=== PATIENT | male | born 1965 | race Caucasian/White ===

== ENCOUNTER → 2020-11-18 11:40 | Outpatient (CLI) | payer BC, SELFPAY ==
[2020-11-18 13:22] LABS: Coronavirus 19 IgG Antibody Negative (Negative); Coronavirus 19 IgM Antibody Negative (Negative)
== END ==
PROVIDERS: Visit Provider Internal Medicine Adolescent Medicine
DX: Z20.822 Contact with and (suspected) exposure to COVID-19 (principal)
CPT/HCPCS: 36415; 86328

== ENCOUNTER → 2021-05-19 08:04 | Outpatient (POV) | payer BC, SELFPAY | PROVIDERS: Visit Provider Dermatology | DX: Z00.00 Encounter for general adult medical examination without abnormal findings (principal) ==

== ENCOUNTER → 2022-04-01 07:11 | Outpatient (CLI) | payer BC, SELFPAY ==
--- NOTE | 2022-04-01 07:16 | CT_ITS ---
FINAL REPORT TECHNIQUE: Axial images through the abdomen and pelvis were performed without contrast.This study was performed with techniques to keep radiation doses as low as reasonably achievable, (ALARA). Individualized dose reduction techniques using automated exposure control or adjustment of mA and/or kV according to the patient's size were employed. CLINICAL HISTORY: LT INGUINAL PAIN,LT LOWER QUAD PAIN FINDINGS: ABDOMEN: The lung demonstrate a 5 mm nodule at the right major fissure on image 2 of series 3 likely representing an intra fissural lymph node. The heart size is normal. There is a benign-appearing cyst in the superior right hepatic lobe measuring 2.4 cm in diameter. There are also other, smaller hepatic cysts. Otherwise, liver and gallbladder are unremarkable. The spleen is normal. No adrenal mass is identified. The aorta is normal in caliber. There is a partially calcified precaval lymph node. There is no significant free fluid or adenopathy. There is a nonobstructing stone in the lower pole the right kidney measuring 5 mm seen on image 74 of series 3. There is no hydronephrosis. PELVIS: The appendix is normal. There is a small, fat containing left inguinal hernia. The urinary bladder is unremarkable. There is no significant free fluid or adenopathy. IMPRESSION: Small, fat containing left inguinal hernia. 5 mm nonobstructing right renal stone. Benign-appearing hepatic cysts. Reviewed, Interpreted and Dictated by Vahid Jackson MD Transcribed by Chanel Kirk Authenticated and [facility]
== END ==
PROVIDERS: PCP Internal Medicine Adolescent Medicine; Visit Provider Internal Medicine Adolescent Medicine
DX: R10.32 Left lower quadrant pain (principal)
CPT/HCPCS: 74176

== ENCOUNTER → 2022-04-07 10:06 | Outpatient (CLI) | payer BC, SELFPAY ==
--- NOTE | 2022-04-07 10:16 | ECG_ITS ---
APPROVED REPORT Exam: Resting ECG HR:63 bpm ECG Measurements Heart Rate 63 AXES VA 159 P 62 QRSd 94 QRS 6 QT 388 T 54 QTc 396 Conclusion SINUS RHYTHM NORMAL ECG UNCONFIRMED REPORT Electronically signed by : Ernesto James MD 04/07/2022 18:35:54
[2022-04-07 10:22] LABS: Microscopic, Urine URINE MICROSCOPIC (MICROSCOPIC)
[2022-04-07 10:46] LABS: Appearance,Urine CLEAR (Clear); Bilirubin,Urine Negative (Negative); Blood, Urine Negative (Negative); Color,Urine YELLOW (Yellow); Glucose,Urine (UA) Negative (Negative); Ketones,Urine Negative (Negative); Leukocyte Esterase,Urine Negative (Negative); Nitrate,Urine Negative (Negative); PH,Urine 7.5 (5.0-8.5); Protein,Urine Negative (Negative); Urobilinogen,Urine 0.2 EU/dl (0.2)
[2022-04-07 10:49] LABS: WBC,Urine Occasional #/hpf (0-3)
[2022-04-07 10:50] LABS: Bacteria,Urine Trace /lpf; Basophils % 0.5 % (0.1-2.0); Eosinophils # 0.2 K/mm3 (0.0-0.4); Hematocrit 46.5 % (42.0-52.0); Hemoglobin 15.2 g/dL (14.1-18.0); Lymphocytes # 2.2 K/mm3 (0.7-4.5); Mean Corpuscular HGB Conc 32.6 g/dL (31.8-35.4); Mean Platelet Volume 7.9 fl (7.4-10.4); Monocytes # 0.3 K/mm3 (0.1-1.0); Monocytes % 5.2 % (1.7-9.3); Neutrophils # 3.1 K/mm3 (1.8-7.8); Neutrophils % 53.3 % (37.0-80.0); Platelet Count 250 K/mm3 (142-424); RBC,Urine Occasional #/hpf (0-3); Red Blood Count 5.23 M/mm3 (4.60-6.20); Red Cell Distribution Width 13.1 % (11.5-17.5); Squamous Epithelial Cell,Urine Occasional #/hpf (0-5); White Blood Count 5.8 K/mm3 (4.8-10.8)
[2022-04-07 11:32] LABS: Chloride 107 mmol/L (98-107); Potassium 4.5 mmoL/L (3.5-5.1); Sodium 140 mmol/L (136-145)
[2022-04-07 11:35] LABS: Blood Urea Nitrogen 14 mg/dl (9-20); Estimated Glomerular Filt Rate 88 ml/min (>60); GFR (African American) 106 ML/MIN (>60)
[2022-04-07 11:36] LABS: Anion Gap 12.5 mEq/L (5-15); Calcium 9.2 mg/dl (8.4-10.2); Carbon Dioxide 25 mmol/L (22.0-30.0); Glucose 97 mg/dl (74-100)
== END ==
PROVIDERS: PCP Internal Medicine Adolescent Medicine; Visit Provider Surgery
DX: Z01.818 Encounter for other preprocedural examination (principal); K40.90 Unilateral inguinal hernia, without obstruction or gangrene, not specified as recurrent
CPT/HCPCS: 36415; 80048; 81001; 85025; 93005

== ENCOUNTER 2022-04-29 06:01 | Day surgery (SDC) | payer BC, SELFPAY ==
[2022-04-29] VITALS (10 sets, daily range): BP systolic 105–130; BP diastolic 67–86; PULSE 66–91; RESP 15–19; TEMP 36.5–43; O2SAT 93–98; BMI 31.1
--- NOTE | 2022-04-29 07:08 | EXP.ANES.CKL ---
[facility] Disclaimer: The information contained in this section may have been updated after the patient was seen, as this information can be updated by other users. Medical History BPH (benign prostatic hyperplasia) Surgical History History of colonoscopy Family History Other Family history of cancer Social History Smoking Status: Never smoker alcohol intake: current substance use type: denies use current occupational status: employed Travel in the last 8 weeks: None household members: family housing: house lives independently: No marital status: education level: college service: No caffeine: Yes special ky needs: No agree to transfusion: No do you feel safe at home: Yes victim of physical abuse: No victim of emotional abuse: No victim of sexual abuse: No would you like helpful sources: No [facility] Anesthesia Checklist Patient Identification Patient Identification: Arm Band and Verbal (Name & ) Structural Data Admitted From: Home Planned Operative Procedure/s: Inguinal hernia repair Consent for Planned Operative Procedure(s) Verified: Yes NPO Status Verified Time NPO: 00:00 Additional verifications Anesthesia Reactions: No Hx Blood Transfusions: No Blood Transfusion Reaction: No Airway Assessment C-Spine Mobility Assessed: Yes TMJ Mobility Assessed: Yes Dentition: Good Dentition Neurological Assessment Level of Consciousness: Awake Hx Seizures: No Numbness or tingling in extremities: No Anesthesia Plan Anesthesia Risk discussed: Yes Anesthesia Plan: Verified ASA Class: I Anesthesia Type: General
--- NOTE | 2022-04-29 09:13 | EXP.OP.NOTE ---
Date of procedure: 04/29/22 Pre-op Diagnosis:: Left inguinal hernia Post-op Diagnosis:: Same Procedure performed:: Open left inguinal hernia repair Surgeon:: Amadou Arndt MD PHYSICIAN GENERAL INTERNAL MEDICINE:: Young Jung Anesthesia: GETA Estimated blood loss (mL): 15 Operative findings:: Large complex indirect defect Dense adhesions throughout inguinal canal Operative note:: After informed consent was obtained the patient was taken to the operating room and placed in the supine position. General anesthesia was induced and his abdomen and groin/scrotum were prepped and draped in a sterile fashion. After infiltration of local anesthetic an oblique left groin incision was made. Electrocautery was used to transect through Vanessa's fascia to the level of the external aponeurosis. The external aponeurosis was sharply opened to the level of the external ring. The contents of the canal were carefully elevated. Dense adhesions were noted throughout. A large cord lipoma and the hernia sac were densely adhered to the cord structures. A combination of sharp dissection, blunt dissection, and electrocautery was utilized to free the cord from surrounding tissue. No obvious injury to the vas deferens or vasculature was noted. The hernia sac was elevated and opened along its distal margin to facilitate dissection. Once dissection was completed the defect was reapproximated with running Vicryl suture. An extra-large PerFix plug was placed in the defect and secured with interrupted Ethibond. The PerFix overlay was then secured to the shelving edge inferiorly and fascial margin superiorly with interrupted Ethibond. The external aponeurosis was reapproximated with running Vicryl suture. Vanessa's fascia was reapproximated in the same manner. 3-0 Monocryl STRATAFIX was then used to close the skin. Dressings were applied and the patient was transferred to recovery in stable condition after extubation. Condition: stable Disposition: PACU Specimens:: None Complications:: No immediate
--- NOTE | 2022-04-29 09:21 | P.PNANES_ITS ---
[facility] Anesthesia Record Part I Anesthesia Record I Intake, IV Amount: 1,300 Estimated blood loss (mL): 15 Urine output (mL): 200 Blood Pressure: 125/67 SaO2: 93 Pulse Rate: 90 Respiratory Rate: 19 Temperature: 98.3 F Patient is:: Drowsy and Oral/Nasal airway Stable to PACU at:: 09:20
[2022-04-29 11:38] LABS: Microscopic,Cath URINE MICROSCOPIC (MICROSCOPIC)
[2022-04-29 11:48] LABS: Appearance,Urine/Cath CLEAR (Clear); Bilirubin,Cath Negative (Negative); Blood, Urine/Cath Negative (Negative); Color,Urine/Cath YELLOW (Yellow); Glucose,Urine/Cath (UA) Negative (Negative); Ketones,Urine/Cath Negative (Negative); Leukocyte Esterase,Cath Negative (Negative); Nitrate,Cath Negative (Negative); Protein,Urine/Cath Negative (Negative); Urobilinogen,Cath 0.2 EU/dl (0.2)
[2022-04-29 12:05] LABS: Squamous Epithelial Ur./Cath Occasional #/hpf (0-5); WBC,Urine/Cath Occasional #/hpf (0-3)
--- NOTE | 2022-04-30 16:06 | EXP.ANES.II ---
[facility] Anesthesia Record Part II Anesthesia Record Part II Discharge Time: 09:50 Destination: Surgical Day Care (OP Surgery) PACU nurse assessment reviewed?: Yes Patient Condition:: Good Anesthesia Complications:: None Swallowing reflex intact?: Yes Cyanosis?: No Blood Pressure: 127/82 Pulse Rate: 84 Temperature: 98 F Mental Status: Alert & Oriented Pain level:: 0 Nausea and/or vomitting:: None Intake, IV Amount: 0
[2022-04-30 16:07] VITALS: BP 127/82; PULSE 84; TEMP 36.6
== END 2022-04-29 10:30 | disposition home or self-care (01) ==
PROVIDERS: PCP Internal Medicine Adolescent Medicine; Visit Provider Surgery
PROC: (CPT 49505; principal; 2022-04-29 07:30)
DX: K40.90 Unilateral inguinal hernia, without obstruction or gangrene, not specified as recurrent (principal); K66.0 Peritoneal adhesions (postprocedural) (postinfection); Z79.899 Other long term (current) drug therapy
CPT/HCPCS: 49505; 81001; 96374; J2405

== ENCOUNTER 2024-01-15 01:35 | Emergency (ER) | payer BC, SELFPAY ==
[2024-01-15 01:36] VITALS: BP 178/107; PULSE 80; RESP 18; TEMP 36.6; O2SAT 94; BMI 33.9
[2024-01-15 01:39] VITALS: BP 178/107; PULSE 86; O2SAT 96
--- NOTE | 2024-01-15 01:41 | ED_ITS ---
Discharge Plan Disposition Patient Disposition: Home, Self-Care Prescriptions Prescriptions: No Action alfuzosin 10 mg tablet extended release 24 hr 10 mg PO DAILY Referrals Follow up/Referrals: Ethan Peters MD [Staff Physician] - See instructions Ernesto James MD [Primary Care Provider] - See instructions Activity Restrictions/Add. Instructions Additional Instructions/Restrictions: Please follow-up with your primary care provider and with urology. Please return to the emergency department if you develop any new or worsening symptoms or become concerned for your health. Please take Tylenol and ibuprofen as needed for pain. Clinical Impressions Clinical Impression: Obstruction of ureteropelvic junction (UPJ) due to stone Instructions Patient Instructions: DI for Acute Abdominal Pain Print Language Print Language: [place]i Discharge ED Provider: Mejia Yu General Adult HPI General Chief complaint: Abdominal Pain Stated complaint: abd pain Time Seen by Provider: 01/15/24 01:35 History of Present Illness HPI narrative: 58-year-old male with history of prior left hernia repair and BPH presents for right lower quadrant pain. He reports it is relatively severe, sharp, somewhat intermittent. Has been going on since this evening. No prior surgical history, no recent fever or illness. Patient has been nauseous but has not vomited. Had a normal bowel movement earlier today. Denies inguinal or testicular pain or swelling. Related Data Home Medications ?Medication ?Instructions ?Recorded ?Confirmed alfuzosin 10 mg tablet,extended 10 mg PO DAILY BPH 04/27/22 05/12/22 release 24 hr Allergies Allergy/AdvReac Type Severity Reaction Status Date / Time No Known Allergies Allergy Verified 05/12/22 09:07 [facility] Disclaimer: The information contained in this section may have been updated after the patient was seen, as this information can be updated by other users. Medical History (Updated 01/15/24 @ 03:00 by Mejia Yu MD) BPH (benign prostatic hyperplasia) Left inguinal hernia Surgical History (Updated 05/12/22 @ 09:14 by EDNA Ferro) History of inguinal hernia repair History of colonoscopy Family History Other Family history of cancer Social History Smoking Status: Never smoker alcohol intake: current substance use type: denies use current occupational status: employed household members: family housing: house lives independently: No marital status: education level: college service: No caffeine: Yes special [place] needs: No agree to transfusion: No do you feel safe at home: Yes victim of physical abuse: No victim of emotional abuse: No victim of sexual abuse: No would you like helpful sources: No ROS Obtained: Yes All systems reviewed & no additional complaints except as documented Physical Exam General General appearance: alert and in no apparent distress Head Head exam: atraumatic and normocephalic Eye Eye exam: Present normal appearance, PERRL and EOMI ENT ENT exam: Present normal oropharynx and normal external ear exam Neck Neck exam: Present normal inspection and full ROM Chest Chest inspection: Present normal inspection and symmetric chest wall rise; Absent tenderness Respiratory Respiratory exam: Present normal lung sounds bilaterally; Absent respiratory distress Cardiovascular Cardiovascular exam: Present regular rate and normal rhythm Abdominal Exam Abdominal exam: Present soft; Absent distention, tenderness or guarding Extremities Exam Extremities exam: Present normal inspection; Absent edema or joint swelling Back Exam Back exam: Present normal inspection; Absent tenderness Neurological Exam Neurological exam: Present alert and oriented X3; Absent motor sensory deficit Psychiatric Psychiatric exam: Present normal affect and normal mood Skin Skin exam: Present warm, dry and normal color Lymphatic Lymphatic Findings: no adenopathy Medical Decision Making Medical Records Medical records reviewed: Yes I reviewed the patient's medical records. Screening: Per USPSTF and CDC recommendations, given the prevalence of disease in our region, it is our hospital?s policy to screen for HIV and viral Hepatitis for all patients aged 18 and over and those with ongoing risk factors. Lai Inquiry Pt receiving controlled substance: No Lai was queried for this patient: No Vital Signs: 01/15/24 01:36 01/15/24 01:39 01/15/24 02:00 Temperature 97.9 F Temperature Source Oral Pulse Rate 86 72 Pulse Rate [Right Radial] 80 Respiratory Rate 18 Blood Pressure 178/107 H 161/102 H Blood Pressure [Right Arm] 178/107 H Blood Pressure Mean [Right Arm] 130 Blood Pressure Source Blood Pressure Source [Right Arm] Automatic Cuff Blood Pressure Position Blood Pressure Position [Right Arm] Supine 02 Sat by Pulse Oximetry 94 L 96 96 Oxygen Delivery Method Room Air 01/15/24 03:02 Temperature 97.9 F Temperature Source Oral Pulse Rate 74 Pulse Rate [Right Radial] Respiratory Rate 18 Blood Pressure 162/94 H Blood Pressure [Right Arm] Blood Pressure Mean [Right Arm] Blood Pressure Source Automatic Cuff Blood Pressure Source [Right Arm] Blood Pressure Position Supine Blood Pressure Position [Right Arm] 02 Sat by Pulse Oximetry Oxygen Delivery Method Room Air Lab Data Lab results reviewed: Yes I reviewed the patient's lab results. Lab Results 01/15/24 01:40: WBC 9.0, RBC 4.64, Hgb 13.9 L, Hct 39.7 L, MCV 85.6, MCH 30.0, MCHC 35.0, RDW 13.3, Plt Count 208, MPV 7.8, Neut % (Auto) 60.5, Lymph % (Auto) 29.8, [place] % (Auto) 6.3, Eos % (Auto) 2.9, Baso % (Auto) 0.5, Neut # (Auto) 5.4, Lymph # (Auto) 2.7, [place] # (Auto) 0.6, Eos # (Auto) 0.3, Baso # (Auto) 0.0, Sodium 139, Potassium 3.9, Chloride 107, Carbon Dioxide 27, Anion Gap 8.9, BUN 25 H, Creatinine 1.40 H, Estimated Creat Clear 94, Estimated GFR 52 L, Est GFR ( Amer) 63, Glucose 119 H, Calcium 9.3, Total Bilirubin 0.4, AST 32, ALT 35, Alkaline Phosphatase 57, Total Protein 6.8, Albumin 4.0, Globulin 2.8, Albumin/Globulin Ratio 1.4, Lipase 150 01/15/24 02:31: Urine Color Yellow, Urine Appearance Clear, Urine pH 6.0, Ur Specific [place] >= 1.030, Urine Protein Trace, Urine Glucose (UA) Negative, Urine Ketones Trace, Urine Blood Trace-i, Urine Nitrate Negative, Urine Bilirubin 1+ A, Urine Urobilinogen 1.0, Ur Leukocyte Esterase Negative, Urine RBC 5-10, Urine WBC None, Ur Squamous Epith Cells None, Urine Bacteria Trace 01/15/24 01:40 01/15/24 01:40 Orders (Tests/Meds): ED MEDICATIONS Generic Name Dose Route Start Last Admin Trade Name Freq PRN Reason Stop Dose Admin Sodium Chloride 10 ml 01/15/24 02:17 01/15/24 02:22 Sodium Chloride 0.9% 10ml Syr (Rad Only) IV 02/14/24 02:16 10 ml NEEDED PRN Administration Maintain IV Site Discontinued Medications Generic Name Dose Route Start Last Admin Trade Name Sánchez PRN Reason Stop Dose Admin Iopamidol 75 ml 01/15/24 02:17 01/15/24 02:22 Iopamidol-370 (76%);100ml Bottle IV 01/15/24 02:18 75 ml ONCE ONE Administration ORDERS Category Date Time Status CT abdomen pelvis w con Stat Cat Scan 01/15/24 01:42 Completed CBC w/Auto Diff [Complete Blood Count Auto Diff] Stat Lab 01/15/24 01:40 Completed CMP [Comprehensive Metabolic Panel] Stat Lab 01/15/24 01:40 Completed HIV (1&2) Antibody Rapid Stat Lab 01/15/24 01:40 Received Hep C Ab with Reflex to RNA Stat Lab 01/15/24 01:40 Received Lipase Stat Lab 01/15/24 01:40 Completed UA [Urinalysis and Microscopic] Stat Lab 01/15/24 02:31 Completed Medical Decision Narrative: 58-year-old male with history of BPH and left inguinal hernia repair presents for right lower quadrant pain. History was obtained via interactive discussion with patient, family. On arrival, patient is [afebrile, hemodynamically stable, satting appropriately, alert, oriented x4, GCS 15], moving all extremities spontaneously. Full physical exam performed and significant for no significant abdominal tenderness upon exam. Differential includes but is not limited to appendicitis, diverticulitis, renal lithiasis constipation/gas pain, cholecystitis,. Workup initiated including CBC CMP lipase CT abdomen pelvis with IV contrast. On re-evaluation, patient [remains afebrile, HD stable.] Laboratory workup independently interpreted by me and significant for no significant leukocytosis, mildly elevated creatinine, urinalysis not consistent with infection. Imaging independently interpreted by me and significant for 5 mm obstructing right UVJ stone. See radiology read for full review of final results. Given patient history, exam and workup, patient's presentation most likely represents obstructing right UVJ stone. Interactive discussion was had with patient regarding presentation, workup, symptomatic care. He was encouraged to follow-up with his PCP and with urology for reassessment, strict return precautions were given.. Procedures Risk/Benefits of Procedure(s) Were Explained: Yes Critical Care Critical Care Time Critical Care Time: No
--- NOTE | 2024-01-15 01:42 | CT_ITS ---
PROCEDURE INFORMATION: Exam: CT Abdomen And Pelvis With Contrast Exam date and time: 01/15/2024 2:09 AM Age: 58 years old Clinical indication: Abdominal pain; Additional info: Rlq pain TECHNIQUE: Imaging protocol: Computed tomography of the abdomen and pelvis with contrast. Radiation optimization: All CT scans at this facility use at least one of these dose optimization techniques: automated exposure control; mA and/or kV adjustment per patient size (includes targeted exams where dose is matched to clinical indication); or iterative reconstruction. Contrast material: ISOVUE; Contrast volume: 75 ml; Contrast route: IV; COMPARISON: CT ABDOMEN PELVIS WO CON 04/01/2022 7:22 AM FINDINGS: Lungs: No acute finding. Liver: Stable cystic focus within segment 8 of the liver. Gallbladder and biliary ducts: Normal. No calcified stones. No ductal dilation. Pancreas: Normal. No ductal dilation. Spleen: Normal. No splenomegaly. Adrenal glands: Normal. No mass. Kidneys and ureters: There is a 5 mm calculus at the level of the right UVJ causing mild hydroureteronephrosis and perinephric stranding. There is also slight delay in the right nephrogram. The left kidney in ureter are normal. Stomach and bowel: There is sigmoid diverticulosis without acute inflammation. No bowel obstruction. No mucosal thickening. Appendix: No evidence of appendicitis. Intraperitoneal space: Unremarkable. No free air. No significant fluid collection. Vasculature: Unremarkable. No abdominal aortic aneurysm. Lymph nodes: Unremarkable. No enlarged lymph nodes. Urinary bladder: Unremarkable as visualized. Reproductive: The prostate gland is mildly enlarged. Bones/joints: Mild degenerative changes of the spine. No acute fracture. Soft tissues: A small fat containing umbilical hernia is noted. Findings consistent with prior left inguinal hernia repair. IMPRESSION: 1. 5 mm right UVJ calculus causing mild hydroureteronephrosis, slight delay in the right nephrogram and perinephric stranding. 2. Other nonemergent findings as noted.
[2024-01-15 01:49] LABS: Basophils % 0.5 % (0.1-2.0); Eosinophils # 0.3 K/mm3 (0.0-0.4); Eosinophils % 2.9 % (0.1-12.0); Hematocrit 39.7 % (42.0-52.0); Hemoglobin 13.9 g/dL (14.1-18.0); Lymphocytes # 2.7 K/mm3 (0.7-4.5); Lymphocytes % 29.8 % (10-50); Mean Corpuscular Volume 85.6 fl (80-94); Mean Platelet Volume 7.8 fl (7.4-10.4); Monocytes # 0.6 K/mm3 (0.1-1.0); Monocytes % 6.3 % (1.7-9.3); Neutrophils # 5.4 K/mm3 (1.8-7.8); Neutrophils % 60.5 % (37.0-80.0); Platelet Count 208 K/mm3 (142-424); Red Blood Count 4.64 M/mm3 (4.60-6.20); Red Cell Distribution Width 13.3 % (11.5-17.5)
[2024-01-15 01:55] LABS: Chloride 107 mmol/L (98-107); Potassium 3.9 mmoL/L (3.5-5.1); Sodium 139 mmol/L (136-145)
[2024-01-15 01:57] LABS: Blood Urea Nitrogen 25 mg/dl (9-20); Creatinine Clearance Estimated 94 mL/min (50-200); Estimated Glomerular Filt Rate 52 ml/min (>60); GFR (African American) 63 ML/MIN (>60)
[2024-01-15 01:58] LABS: Alanine Aminotransferase 35 U/L (12-78); Albumin/Globulin Ratio 1.4 (1.1-1.8); Alkaline Phosphatase 57 U/L (38-126); Anion Gap 8.9 mEq/L (5-15); Aspartate Amino Transferase 32 U/L (17-59); Bilirubin,Total 0.4 mg/dl (0.2-1.3); Calcium 9.3 mg/dl (8.4-10.2); Carbon Dioxide 27 mmol/L (22.0-30.0); Globulin 2.8 g/dL (1.3-3.2); Glucose 119 mg/dl (74-100); Lipase 150 U/L (23-300); Total Protein,Serum 6.8 g/dl (6.3-8.2)
[2024-01-15 02:00] VITALS: BP 161/102; PULSE 72; O2SAT 96
[2024-01-15] MEDS: IOPAMIDOL-370 (76%);100ML BOTTLE 75 ML IV (02:22)
[2024-01-15] MEDS: SODIUM CHLORIDE 0.9% 10ML SYR (RAD ONLY) 10 ML IV (02:22)
[2024-01-15 02:36] LABS: Appearance,Urine CLEAR (Clear); Blood, Urine TRACE-I (Negative); Color,Urine YELLOW (Yellow); Glucose,Urine (UA) Negative (Negative); Ketones,Urine TRACE (Negative); Leukocyte Esterase,Urine Negative (Negative); Microscopic, Urine URINE MICROSCOPIC (MICROSCOPIC); Nitrate,Urine Negative (Negative); Protein,Urine TRACE (Negative); Specific Gravity, Urine >= 1.030 (1.005-1.030)
[2024-01-15 02:38] LABS: Bilirubin,Urine 1+ (Negative)
[2024-01-15 02:40] LABS: Bacteria,Urine Trace /lpf
[2024-01-15 03:02] VITALS: BP 162/94; PULSE 74; RESP 18; TEMP 36.6; O2SAT 98
[2024-01-15 03:08] VITALS: BP 139/88; PULSE 71; O2SAT 95
[2024-01-15 03:38] LABS: HIV (1&2) Antibody Rapid NONREACTIVE (NONREACTIVE)
[2024-01-17 06:52] LABS: HCV Ab Non Reactive (Non Reactive)
== END 2024-01-15 03:12 | disposition home or self-care (01) ==
PROVIDERS: Emergency Provider Emergency Medicine; PCP Internal Medicine Adolescent Medicine
DX: N20.1 Calculus of ureter (principal); R10.31 Right lower quadrant pain; R11.0 Nausea
CPT/HCPCS: 74177; 80053; 81001; 83690; 85025; 86803; 87389; 99285; Q9967